=== PATIENT | male | born 1955 | race African-American/Black ===

== ENCOUNTER 2018-01-27 11:50 | Emergency (ER) | payer OTHER ==
[~2018-01-27] VITALS: Ht 180.3 cm; Wt 82.6 kg
[2018-01-27 12:22] VITALS: BP 125/63
[2018-01-27 13:56] LABS: Basophils # (auto) 0 uL; Basophils % (auto) 0.6 % (0.0-2.0); Eosinophils # (auto) 0 uL; Eosinophils % (auto) 1.5 % (0.0-7.0); Hematocrit 29.3 % (41.0-53.0); Hemoglobin 9.7 g/dL (13.5-17.5); Lymphocytes # (auto) 1.4 uL; Lymphocytes % (auto) 49.7 % (10.0-50.0); Mean Corpuscular Hemoglobin 31.6 pg (28.0-32.0); Mean Corpuscular Hgb Conc. 33.2 g/dL (32.0-36.0); Mean Corpuscular Volume 95.2 fL (80.0-100.0); Monocytes # (auto) 0.1 uL; Monocytes % (auto) 2.3 % (0.0-12.0); Neutrophils # (auto) 1.3 uL; Neutrophils % (auto) 45.9 % (37.0-80.0); Nucleated Red Blood Cells % 0.1 %; Platelet Count (auto) 293 10^3/uL (140-450); Red Blood Cells 3.08 10^6/uL (4.5-5.90); White Blood Cell 2.9 10^3/uL (4.4-10.8)
[2018-01-27 14:11] LABS: Red Cell Distribution Width 20.3 % (11.8-14.3)
[2018-01-27 14:16] LABS: Albumin 3.8 g/dL (3.4-5.0); BUN/Creatinine Ratio 13.1; Bilirubin, Total 0.2 mg/dL (0.2-1.0); Calcium 10.3 mg/dL (8.5-10.1); Potassium 3.5 mmol/L (3.5-5.1); Total Protein 7.1 g/dL (6.4-8.2)
[2018-01-27] MEDS ORDERED: HYDROcodone-ACET 10/325MG TAB PO ONE (15:30)
[2018-01-27] MEDS ORDERED: LEVOFLOXACIN 500 MG TAB PO ONE (15:30)
== END 2018-01-27 16:22 | disposition home or self-care (01) ==
LOC: ER 12:03
DX: J40 Bronchitis, not specified as acute or chronic (principal); F17.210 Nicotine dependence, cigarettes, uncomplicated; I10 Essential (primary) hypertension
CPT/HCPCS: 36415; 71046; 80053; 85025; 93005

== ENCOUNTER 2018-02-20 09:46 | Inpatient (IN) | payer OTHER, MEDICAID ==
[~2018-02-20] VITALS: Ht 180.3 cm; Wt 77.1 kg
[2018-02-20 10:55] LABS: Basophils # (auto) 0 uL; Eosinophils # (auto) 0 uL; Lymphocytes # (auto) 0.9 uL; Monocytes # (auto) 0.1 uL; Platelet Count (auto) 234 10^3/uL (140-450); White Blood Cell 2.6 10^3/uL (4.4-10.8)
[2018-02-20 10:57] LABS: Basophils % (auto) 0.6 % (0.0-2.0); Eosinophils % (auto) 0.4 % (0.0-7.0); Hematocrit 23.6 % (41.0-53.0); Lymphocytes % (auto) 34.8 % (10.0-50.0); Mean Corpuscular Hemoglobin 31.7 pg (28.0-32.0); Mean Corpuscular Hgb Conc. 33.9 g/dL (32.0-36.0); Mean Corpuscular Volume 93.6 fL (80.0-100.0); Monocytes % (auto) 2.2 % (0.0-12.0); Neutrophils # (auto) 1.6 uL; Nucleated Red Blood Cells % 0.4 %; Red Blood Cells 2.53 10^6/uL (4.5-5.90)
[2018-02-20 11:10] LABS: Alanine Aminotransferase 14 U/L (16-61); Albumin 3.4 g/dL (3.4-5.0); Alkaline Phosphatase 103 U/L (45-117); Anion Gap 7 (5-15); Aspartate Aminotransferase 8 U/L (15-37); BUN/Creatinine Ratio 16.7; Bilirubin, Total 0.3 mg/dL (0.2-1.0); Blood Urea Nitrogen 20 mg/dL (7-18); Calcium 9.7 mg/dL (8.5-10.1); Carbon Dioxide 26 mmol/L (21-32); Chloride 104 mmol/L (98-107); GFR African American 78 mL/min; GFR Non-African American 65 mL/min; Glucose 122 mg/dL (74-106); Magnesium 2.2 mg/dL (1.6-2.6); Potassium 3.6 mmol/L (3.5-5.1); Sodium 137 mmol/L (136-145); Total Protein 7.1 g/dL (6.4-8.2)
[2018-02-20] MEDS ORDERED: SODIUM CHLORIDE 0.9% 1,000 ML IV ONE (11:49)
[2018-02-20] MEDS ORDERED: IPRATROPIUM BROM 0.5 MG/2.5ML INH SOL NEB ONE (12:00)
[2018-02-20] MEDS ORDERED: methylPREDNISolone SOD SUCC 125 MG/2 ML VL IV ONE (12:00)
[2018-02-20] MEDS ORDERED: ALBUTEROL SULF 2.5 MG/0.5ML(0.5%) NEB SOLN NEB ONE (12:00)
[2018-02-20] MEDS ORDERED: IOHEXOL 350 MG/ML 100ML IJ ONE (13:46)
[2018-02-20] MEDS ORDERED: MORPHINE SULFATE 8mg/ml INJ SDV IV ONE (16:30)
[2018-02-20] MEDS ORDERED: ONDANSETRON HCL 4 MG/2 ML VIAL IV ONE (16:30)
[2018-02-20] MEDS ORDERED: MORPHINE SULF INJ 2 MG/ML SYRINGE 1ML ONE (16:41)
[2018-02-20] MEDS ORDERED: AZITHROMYCIN 500MG/ 250ML 250 ML IV ONE (16:45)
[2018-02-20] MEDS ORDERED: cefTRIAXone 1GM/10ml IVPUSH 10 ML IV ONE (16:45)
[2018-02-20] MEDS ORDERED: ONDANSETRON HCL 4 MG/2 ML VIAL IV PRN (17:00)
[2018-02-20] MEDS ORDERED: MORPHINE SULFATE 8mg/ml INJ SDV IV PRN (17:00)
[2018-02-20] MEDS ORDERED: TEMAZEPAM 15 MG CAP PO PRN (17:00)
[2018-02-20] MEDS ORDERED: DOCUSATE SOD 100 MG CAP PO PRN (17:00)
[2018-02-20] MEDS ORDERED: ACETAMINOPHEN 325 MG TAB PO PRN (17:00)
[2018-02-20] MEDS: IPRATROPIUM BROM 0.5 MG/2.5ML INH SOL NEB SCH (18:19)
[2018-02-20] MEDS: ACETYLCYSTEINE 10 %(100MG/ML) SOL 4ML NEB SCH ×2 (18:19→22:00)
[2018-02-20] MEDS: ALBUTEROL SULF 2.5 MG/0.5ML(0.5%) NEB SOLN NEB SCH (18:19)
[2018-02-20] MEDS: methylPREDNISolone SOD SUCC 40 MG/ML VL IV SCH ×2 (18:21→23:18)
[2018-02-20 19:40] VITALS: BP 118/61
[2018-02-20 19:49] LABS: Lactic Acid w/Reflex 2.1 mmol/L (0.4-2.0)
[2018-02-20] MEDS: HYDROcodone-ACET 10/325MG TAB PO PRN (20:28)
[2018-02-20 20:30] VITALS: BP 107/59
[2018-02-20] MEDS ORDERED: KETOROLAC TROMETH 30 MG/ML 1ML VIAL IV ONE (20:45)
[2018-02-20] MEDS: FAMOTIDINE 20 MG TAB PO SCH (21:32)
[2018-02-20] MEDS: SODIUM CHLOR 0.9% PF (SALINE LOCK) 10ML VIAL/SYR IV SCH (21:32)
[2018-02-20 21:59] LABS: Urine Bacteria NONE SEEN /hpf (None Seen); Urine Blood Negative /uL (Negative); Urine WBC <1 /hpf (0 - 3)
[2018-02-20 22:00] VITALS: BP 107/59
[2018-02-20] MEDS ORDERED: SERTRALINE HCL 50 MG TAB PO SCH (22:00)
[2018-02-20] MEDS ORDERED: LISI2.5T47 PO (23:31)
[2018-02-20] MEDS ORDERED: HYDR-4683 PO (23:31)
[2018-02-20] MEDS ORDERED: SERT25TA84 PO (23:31)
[2018-02-21] MEDS: ALBUTEROL SULF 2.5 MG/0.5ML(0.5%) NEB SOLN NEB SCH ×3 (00:39→12:09)
[2018-02-21] MEDS: IPRATROPIUM BROM 0.5 MG/2.5ML INH SOL NEB SCH ×3 (00:39→12:09)
[2018-02-21] MEDS: ACETYLCYSTEINE 10 %(100MG/ML) SOL 4ML NEB SCH ×2 (00:39→07:26)
[2018-02-21 05:00] VITALS: BP 122/73
[2018-02-21] MEDS: SODIUM CHLOR 0.9% PF (SALINE LOCK) 10ML VIAL/SYR IV SCH (06:05)
[2018-02-21] MEDS: HYDROcodone-ACET 10/325MG TAB PO PRN ×2 (06:06→10:03)
[2018-02-21] MEDS: methylPREDNISolone SOD SUCC 40 MG/ML VL IV SCH ×2 (06:06→11:44)
[2018-02-21 06:37] LABS: Basophils # (auto) 0 uL; Basophils % (auto) 0.3 % (0.0-2.0); Eosinophils # (auto) 0 uL; Eosinophils % (auto) 0.1 % (0.0-7.0); Hematocrit 21.8 % (41.0-53.0); Hemoglobin 7.6 g/dL (13.5-17.5); Lymphocytes # (auto) 0.6 uL; Mean Corpuscular Hemoglobin 32.3 pg (28.0-32.0); Mean Corpuscular Hgb Conc. 34.7 g/dL (32.0-36.0); Mean Corpuscular Volume 93.2 fL (80.0-100.0); Monocytes # (auto) 0.1 uL; Monocytes % (auto) 2.1 % (0.0-12.0); Neutrophils % (auto) 73.5 % (37.0-80.0); Nucleated Red Blood Cells % 0.5 %; Platelet Count (auto) 191 10^3/uL (140-450); Red Blood Cells 2.34 10^6/uL (4.5-5.90); Red Cell Distribution Width 19.6 % (11.8-14.3); White Blood Cell 2.7 10^3/uL (4.4-10.8)
[2018-02-21 06:58] LABS: Albumin 3.1 g/dL (3.4-5.0); Calcium 9.2 mg/dL (8.5-10.1); Potassium 4.2 mmol/L (3.5-5.1)
[2018-02-21 07:01] LABS: BUN/Creatinine Ratio 25.8
[2018-02-21 07:13] LABS: Urine Bacteria FEW /hpf (None Seen); Urine Blood Negative /uL (Negative); Urine Mucus FEW (None Seen); Urine Specific Gravity 1.047 (1.001-1.035); Urine WBC <1 /hpf (0 - 3)
[2018-02-21 07:15] LABS: Bilirubin, Total 0.1 mg/dL (0.2-1.0); Total Protein 6.8 g/dL (6.4-8.2)
[2018-02-21 08:53] VITALS: BP_SYST 120; BP_SYST 125; BP_DIAS 70; BP_DIAS 77
[2018-02-21 08:55] VITALS: BP 120/70
[2018-02-21] MEDS ORDERED: cefTRIAXone 1GM/10ml IVPUSH 10 ML IV SCH (09:00)
[2018-02-21 09:44] LABS: Folate (Folic Acid) 14.8 ng/mL (5.38-24)
[2018-02-21] MEDS ORDERED: MULTIPLE VITAMIN TAB PO SCH (10:00)
[2018-02-21] MEDS ORDERED: LISINOPRIL 10 MG TAB PO SCH (10:00)
[2018-02-21] MEDS ORDERED: AZITHROMYCIN 500MG/ 250ML 250 ML IV SCH (10:00)
[2018-02-21] MEDS: FAMOTIDINE 20 MG TAB PO SCH (10:02)
[2018-02-21] MEDS ORDERED: ACETYLCYSTEINE 10 %(100MG/ML) SOL 4ML NEB SCH (12:00)
[2018-02-24 11:25] LABS: Immunoglobulin G, Serum 395 mg/dL (700-1600)
== END 2018-02-21 13:40 | disposition home or self-care (01) | DRG 202 ==
LOC: ER 09:46 → EDBD 09:46 → OVERFLOW 09:47 → WEST WING 20:14
PROVIDERS: ADMIT Internal Medicine; ATTEND Family Medicine
DX: J45.901 Unspecified asthma with (acute) exacerbation (principal); C79.51 Secondary malignant neoplasm of bone; J98.11 Atelectasis; I11.9 Hypertensive heart disease without heart failure; D63.8 Anemia in other chronic diseases classified elsewhere; M89.9 Disorder of bone, unspecified; N18.2 Chronic kidney disease, stage 2 (mild); M84.48XD Pathological fracture, other site, subsequent encounter for fracture with routine healing; F17.210 Nicotine dependence, cigarettes, uncomplicated; Z82.49 Family history of ischemic heart disease and other diseases of the circulatory system; Z87.01 Personal history of pneumonia (recurrent)
CPT/HCPCS: 36415; 71045; 71275; 74176; 80053; 81001; 81002; 82105; 82232; 82378; 82607; 82746; 82784; 83540; 83550; 83605; 83615; 83735; 83880; 83883; 84154; 84443; 84484; 85025; 85379; 86301; 86334; 86335; 87040; 93005; 93970; 94640; 94761; 96374; 96375; J1885; J2405

== ENCOUNTER 2018-09-28 14:15 | Inpatient (IN) | payer OTHER, MEDICAID | END 2018-10-01 12:25 | disposition home or self-care (01) | LOC: ER 14:15 → TELE 19:01 → TELE-CENTR 22:05 | DX: A41.9 Sepsis, unspecified organism (principal); J18.1 Lobar pneumonia, unspecified organism; C90.00 Multiple myeloma not having achieved remission; E87.1 Hypo-osmolality and hyponatremia ==

== ENCOUNTER 2019-06-08 12:22 | Inpatient (IN) | payer BC, MEDICAID ==
[~2019-06-08] VITALS: Ht 182.9 cm; Wt 77.6 kg
[~2019-06-08 12:22] MED LIST: HYDR-4833 PO; LISI2.5T47 PO; SERT25TA84 PO
[2019-06-08] MEDS ORDERED: ACETAMINOPHEN 325 MG TAB PO ONE (13:00)
[2019-06-08] MEDS ORDERED: SODIUM CHLORIDE 0.9% 1,000 ML IV ONE ×2 (13:16)
[2019-06-08 13:59] LABS: Urine Bacteria NONE SEEN /hpf (None Seen); Urine Blood 2+ /uL (Negative); Urine Mucus FEW (None Seen); Urine Specific Gravity 1.029 (1.001-1.035); Urine WBC 2 /hpf (0 - 3)
[2019-06-08 14:21] LABS: Basophils # (auto) 0 uL; Eosinophils # (auto) 0 uL; Eosinophils % (auto) 0.3 % (0.0-7.0); Hemoglobin 9.5 g/dL (13.5-17.5); Lymphocytes # (auto) 0.5 uL; Monocytes # (auto) 0.1 uL; Neutrophils # (auto) 1.3 uL
[2019-06-08 14:25] LABS: Basophils % (auto) 1.1 % (0.0-2.0); Hematocrit 27.7 % (41.0-53.0); Lymphocytes % (auto) 26.8 % (10.0-50.0); Mean Corpuscular Hemoglobin 31.9 pg (28.0-32.0); Mean Corpuscular Hgb Conc. 34.4 g/dL (32.0-36.0); Mean Corpuscular Volume 92.6 fL (80.0-100.0); Monocytes % (auto) 3.9 % (0.0-12.0); Neutrophils % (auto) 67.9 % (37.0-80.0); Nucleated Red Blood Cells % 0.8 %; Platelet Count (auto) 233 10^3/uL (140-450); Red Blood Cells 2.99 10^6/uL (4.5-5.90); Red Cell Distribution Width 18.5 % (11.8-14.3)
[2019-06-08 14:26] LABS: Albumin 2.8 g/dL (3.4-5.0); Calcium 8.7 mg/dL (8.5-10.1)
[2019-06-08 14:30] LABS: BUN/Creatinine Ratio 13.1; Bilirubin, Total 2.8 mg/dL (0.2-1.0); Total Protein 6.9 g/dL (6.4-8.2)
[2019-06-08 14:41] LABS: Potassium 2.8 mmol/L (3.5-5.1)
[2019-06-08] MEDS ORDERED: ONDANSETRON HCL 4 MG/2 ML VIAL IV ONE (14:45)
[2019-06-08] MEDS ORDERED: POTASSIUM EFFERVESENT TAB 25 MEQ PO ONE (14:45)
[2019-06-08] MEDS ORDERED: cefTRIAXone 1GM/50ML D5W 50 ML IV ONE (15:00)
[2019-06-08] MEDS ORDERED: AZITHROMYCIN 500MG/ 250ML 250 ML IV ONE (15:00)
[2019-06-08] MEDS ORDERED: PROMETHAZINE HCL 25 MG/ML 1ML IV PRN (16:00)
[2019-06-08] MEDS ORDERED: ALBUTEROL SULF 2.5 MG/0.5ML(0.5%) NEB SOLN NEB PRN (16:00)
[2019-06-08] MEDS ORDERED: TEMAZEPAM 15 MG CAP PO PRN (16:00)
[2019-06-08] MEDS ORDERED: VANCOMYCIN PER PHARMACY 0 MG IV SCH (16:00)
[2019-06-08] MEDS ORDERED: LACTULOSE 20Gm/30ML SOLN PO PRN (16:00)
[2019-06-08] MEDS ORDERED: NITROGLYCERIN 0.4 MG SL TAB SL PRN (16:00)
[2019-06-08] MEDS ORDERED: MORPHINE SULF INJ 2 MG/ML SYRINGE 1ML IV PRN (16:00)
[2019-06-08] MEDS ORDERED: PIPERACILLIN-TAZOB 3.375GM 100 ML IV ONE (16:00)
[2019-06-08] MEDS: SODIUM CHLORIDE 0.9% 1,000 ML IV SCH ×2 (16:42→23:51)
[2019-06-08 17:13] VITALS: BP 122/57
[2019-06-08] MEDS ORDERED: VANCOMYCIN 1GM/250ML 250 ML IV ONE (17:30)
--- NOTE | 2019-06-08 17:52 | NUR ---
Telemetry admit from ER AURELIA DE SOUZA admitted to Telemetry unit after SBAR received. Patient oriented to Irma Bartholomew, RN primary RN, unit, room, bed, and unit policies regarding patient care and visiting hours. Patient now on continuous telemetry monitoring, tele box # 34 and telemetry reading on arrival to unit is [facility]. Patient placed on bedside oxygen, weighed by bedscale and encouraged to call if they need something. All questions and concerns addressed, patient verbalized understanding. Note:
[2019-06-08 18:01] VITALS: BP 128/64
[2019-06-08] MEDS: ALBUTEROL SULF 2.5 MG/0.5ML(0.5%) NEB SOLN NEB SCH ×2 (18:18→23:34)
[2019-06-08] MEDS: IPRATROPIUM BROM 0.5 MG/2.5ML INH SOL NEB SCH ×2 (18:18→23:34)
[2019-06-08] MEDS: traMADol HCL 50 MG TAB PO PRN (18:24)
[2019-06-08 18:41] VITALS: BP 128/64
--- NOTE | 2019-06-08 19:35 | NUR ---
RECEIVED PATIENT, AWAKE, ALERT, ORIENTED X4, AMBULATORY. NO S/S OF DISTRESS, C/O GENERALIZED BODY PAIN. ORIENTED ON PLAN OF CARE. BED IS LOCKED AND IN LOWEST POSITION, SIDE RAILS UP X2, CALL LIGHT WITHIN REACH. WILL CONTINUE TO MONITOR.
[2019-06-08] MEDS: ACETAMINOPHEN 500 MG TAB PO PRN (21:20)
[2019-06-08 21:52] VITALS: BP 107/49
[2019-06-08] MEDS: PIPERACILLIN-TAZOB 3.375GM 100 ML IV SCH (23:42)
[2019-06-09] MEDS: ACETAMINOPHEN 500 MG TAB PO PRN ×2 (05:00→17:15)
[2019-06-09] MEDS: VANCOMYCIN 1GM/250ML 250 ML IV SCH ×2 (05:39→17:35)
[2019-06-09 05:59] VITALS: BP 103/63
[2019-06-09] MEDS: PIPERACILLIN-TAZOB 3.375GM 100 ML IV SCH ×3 (06:39→18:30)
[2019-06-09 07:21] LABS: Basophils # (auto) 0 uL; Eosinophils # (auto) 0 uL; Lymphocytes # (auto) 0.4 uL; Mean Corpuscular Volume 92.3 fL (80.0-100.0); Neutrophils # (auto) 1.1 uL; Red Blood Cells 2.53 10^6/uL (4.5-5.90); Red Cell Distribution Width 18.6 % (11.8-14.3)
[2019-06-09 07:24] LABS: Basophils % (auto) 0.9 % (0.0-2.0); Eosinophils % (auto) 0.8 % (0.0-7.0); Hematocrit 23.3 % (41.0-53.0); Lymphocytes % (auto) 25.4 % (10.0-50.0); Mean Corpuscular Hemoglobin 31.8 pg (28.0-32.0); Mean Corpuscular Hgb Conc. 34.5 g/dL (32.0-36.0); Monocytes # (auto) 0 uL; Monocytes % (auto) 2.8 % (0.0-12.0); Neutrophils % (auto) 70.1 % (37.0-80.0); Nucleated Red Blood Cells % 0.1 %; Platelet Count (auto) 188 10^3/uL (140-450)
--- NOTE | 2019-06-09 07:30 | NUR ---
Opening Shift Note Assuming care of patient at this time. Patient is resting with his eyes closed. Patient shows no signs or symptoms of pain. Patient shows no signs or symptoms of distress or shortness of breath. Breaths are even and unlabored. Bed is locked and lowered with side rails up x2. Will instruct patient on the plan of care for today and to call for assistance as needed once patient is more awake and alert. Call light within reach. Will continue to round hourly and as needed.
[2019-06-09 07:34] LABS: White Blood Cell 1.6 10^3/uL (4.4-10.8)
--- NOTE | 2019-06-09 07:34 | NUR ---
CARE ENDORSED TO AM SHIFT RN
--- NOTE | 2019-06-09 07:35 | NUR ---
Critical Lab Notified from DAISY Cobb that a critical lab value was received. Patient's WBC is currently 1.6. Will notify on-call hospitalist.
--- NOTE | 2019-06-09 07:36 | NUR ---
Page to On-call Hospitalist Page to on-call hospitalist to notify of patient's critical lab value.
[2019-06-09 07:46] LABS: Calcium 8.2 mg/dL (8.5-10.1)
[2019-06-09 07:49] LABS: BUN/Creatinine Ratio 10.3
[2019-06-09] MEDS: SODIUM CHLORIDE 0.9% 1,000 ML IV SCH ×3 (07:51→20:45)
--- NOTE | 2019-06-09 07:51 | NUR ---
Call from On-Call Call from [facility] at this time. Aware of patient's new critical lab. New orders given.
[2019-06-09 07:53] LABS: Potassium 2.8 mmol/L (3.5-5.1)
[2019-06-09 08:00] VITALS: BP 108/59
[2019-06-09] MEDS ORDERED: FILGRASTIM (TBO) 300 MCG/0.5 ML SYRG SC ONE (08:00)
[2019-06-09] MEDS: IPRATROPIUM BROM 0.5 MG/2.5ML INH SOL NEB SCH ×4 (08:41→23:52)
[2019-06-09] MEDS: ALBUTEROL SULF 2.5 MG/0.5ML(0.5%) NEB SOLN NEB SCH ×4 (08:41→23:52)
[2019-06-09] MEDS ORDERED: POTASSIUM CHL 20 Meq TABLET PO ONE (08:45)
[2019-06-09] MEDS: PANTOPRAZOLE 40 MG TAB PO SCH (09:38)
[2019-06-09] MEDS: traMADol HCL 50 MG TAB PO PRN ×2 (09:42→22:57)
[2019-06-09] MEDS ORDERED: AZITHROMYCIN 500MG/ 250ML 250 ML IV SCH (10:00)
[2019-06-09] MEDS ORDERED: ENOXAPARIN SOD 40 MG/0.4 ML SYRINGE SC SCH (10:00)
[2019-06-09] MEDS ORDERED: NICOTINE 21MG/24 HR TOPICAL PATCH TD ONE (10:45)
[2019-06-09] MEDS: HYDROcodone-ACET 5/325MG TAB PO PRN ×2 (11:56→19:41)
[2019-06-09] MEDS: SERTRALINE HCL 50 MG TAB PO SCH (12:01)
[2019-06-09 13:00] VITALS: BP 118/56
[2019-06-09 17:00] VITALS: BP 113/64
--- NOTE | 2019-06-09 19:30 | NUR ---
Opening Shift Note Assumed care of patient, awake and alert.Complaining of pain "all over" 06/29. Will medicate with norco per orders. No S/S of distress/SOB. Sitting up in bed. Slightly irritable and short. Refusing IV fluids. Instructed on POC and to call for assist PRN, will continue to monitor for changes Q1hr and PRN.Call light within reach.
--- NOTE | 2019-06-09 19:34 | NUR ---
Closing Shift Note Patient resting in bed with eyes closed. Patient shows no signs or symptoms of distress or shortness of breath. Report given. Will endorse care to the overnight babysitter RN.
[2019-06-09 21:41] VITALS: BP 103/67
--- NOTE | 2019-06-09 23:53 | NUR ---
Respiratory note: PT REFUSING SCHEDULED MED NEB TX AT THIS TIME. PT STATING HE WANTS TO SLEEP. NO SIGNS OF ANY RESPIRATORY DISTRESS NOTED.
--- NOTE | 2019-06-10 | NUR ---
Paged hospitalist. Patient states " I take norco at home , this isnt working." Complaining of pain 06/29 all over. Awaiting return call
[2019-06-10] MEDS: PIPERACILLIN-TAZOB 3.375GM 100 ML IV SCH ×4 (00:12→18:04)
[2019-06-10] MEDS: HYDROcodone-ACET 5/325MG TAB PO PRN ×3 (00:15→11:31)
--- NOTE | 2019-06-10 00:40 | NUR ---
Paged hospitalist for second time. Continuing to wait for return call
--- NOTE | 2019-06-10 00:57 | NUR ---
Antwan called. Ordered extra dose of norco x1. Orders carried out.
[2019-06-10] MEDS ORDERED: HYDROcodone-ACET 7.5/325MG TAB PO ONE (01:00)
[2019-06-10 05:12] VITALS: BP 112/68
[2019-06-10 05:44] LABS: Basophils # (auto) 0 uL; Basophils % (auto) 0.3 % (0.0-2.0); Eosinophils # (auto) 0 uL; Eosinophils % (auto) 0.8 % (0.0-7.0); Hematocrit 26.9 % (41.0-53.0); Hemoglobin 9.3 g/dL (13.5-17.5); Lymphocytes # (auto) 0.5 uL; Lymphocytes % (auto) 14.7 % (10.0-50.0); Mean Corpuscular Hemoglobin 32.2 pg (28.0-32.0); Mean Corpuscular Hgb Conc. 34.5 g/dL (32.0-36.0); Mean Corpuscular Volume 93.3 fL (80.0-100.0); Monocytes # (auto) 0 uL; Neutrophils # (auto) 2.7 uL; Neutrophils % (auto) 83.2 % (37.0-80.0); Nucleated Red Blood Cells % 0.3 %; Platelet Count (auto) 213 10^3/uL (140-450); Red Blood Cells 2.89 10^6/uL (4.5-5.90); Red Cell Distribution Width 18.6 % (11.8-14.3); White Blood Cell 3.3 10^3/uL (4.4-10.8)
[2019-06-10 06:02] LABS: Albumin 2.2 g/dL (3.4-5.0); Calcium 8.5 mg/dL (8.5-10.1); Potassium 3.5 mmol/L (3.5-5.1)
[2019-06-10 06:05] LABS: Bilirubin, Total 1.8 mg/dL (0.2-1.0); Total Protein 6.4 g/dL (6.4-8.2)
[2019-06-10] MEDS: VANCOMYCIN 1GM/250ML 250 ML IV SCH ×3 (06:06→23:56)
[2019-06-10] MEDS ORDERED: HYDR-4072 PO (06:49)
[2019-06-10] MEDS: SODIUM CHLORIDE 0.9% 1,000 ML IV SCH ×2 (06:50→18:04)
--- NOTE | 2019-06-10 06:50 | NUR ---
Slept on and off throughout night. Changed norco in home meds list to per pt. Asked to bring bottle in to verify accurate dose. No Respiratory distress noted. Using urinal through out night. I emptied 450 clear yellow urine. Neutropenic precautions maintained. Educated on hand hygiene and him being high risk for infection. Verbalized understanding Call light within reach. Productive cough, yellow/green phlegm noted.
--- NOTE | 2019-06-10 07:01 | NUR ---
Called pharmacy to ask to adjust times for antibiotics due to both scheduled @ 0600. He advised to give Vanco first if that is to happen in the future.
[2019-06-10] MEDS: IPRATROPIUM BROM 0.5 MG/2.5ML INH SOL NEB SCH ×3 (07:31→18:00)
[2019-06-10] MEDS: ALBUTEROL SULF 2.5 MG/0.5ML(0.5%) NEB SOLN NEB SCH ×3 (07:32→18:00)
--- NOTE | 2019-06-10 08:05 | NUR ---
OPENING SHIFT NOTE ASSUMED CARE OF PATIENT. PATIENT IS AWAKE AND ALERT. NO SOB OR SIGNS OF DISTRESS NOTED. INSTRUCTED ON POC AND TO CALL FOR ASSISTANCE PRN. BED IN LOWEST POSITION WITH SIDE RAILS UP X2. WILL CONTINUE TO MONITOR.
[2019-06-10 09:00] VITALS: BP 111/62
[2019-06-10] MEDS: NICOTINE 21MG/24 HR TOPICAL PATCH TD SCH (10:00)
[2019-06-10] MEDS: FILGRASTIM(TBO) 480 MCG/0.8 ML SYRG SC SCH (10:04)
[2019-06-10] MEDS: SERTRALINE HCL 50 MG TAB PO SCH (10:04)
[2019-06-10] MEDS: PANTOPRAZOLE 40 MG TAB PO SCH (10:04)
[2019-06-10] MEDS ORDERED: VANCOMYCIN 1GM/250ML 250 ML IV SCH (10:30)
--- NOTE | 2019-06-10 12:19 | NUR ---
Respiratory note: RT at bedside for scheduled medneb tx. Pt wants to eat lunch first, requesting to take breathing tx after lunch. Pt with no s/s of respiratory distress at this time. Will return at a later time.
[2019-06-10 13:00] VITALS: BP 104/63
[2019-06-10 16:54] VITALS: BP 116/60
[2019-06-10] MEDS: HYDROcodone-ACET 10/325MG TAB PO PRN ×2 (18:04→22:49)
[2019-06-10] MEDS: Ensure HIGH Protein Chocolate 8oz Bottle PO SCH (18:05)
--- NOTE | 2019-06-10 19:08 | NUR ---
PT REFUSED MED NEB AT THIS TIME. DENIES SOB. WILL CHECK BACK AT NEXT SCHEDULED TX
--- NOTE | 2019-06-10 19:25 | NUR ---
Opening Shift Note Report received from day shift RN. Assumed care of patient. Patient sitting in bed awake and alert x4. No S/S of distress/SOB noted. Patient complains of body pain 7/10 on a numerical scale. Will medicate patient as ordered. Bed locked and left in the lowest position. Call left within reach. Instructed on POC and to call for assist PRN, will continue to monitor for changes Q1hr and PRN.
[2019-06-10 22:00] VITALS: BP 126/69
[2019-06-11] MEDS: IPRATROPIUM BROM 0.5 MG/2.5ML INH SOL NEB SCH ×5 (00:01→23:59)
[2019-06-11] MEDS: ALBUTEROL SULF 2.5 MG/0.5ML(0.5%) NEB SOLN NEB SCH ×4 (00:01→23:59)
[2019-06-11] MEDS: PIPERACILLIN-TAZOB 3.375GM 100 ML IV SCH ×4 (01:02→18:46)
[2019-06-11] MEDS: SODIUM CHLORIDE 0.9% 1,000 ML IV SCH ×3 (02:45→22:44)
[2019-06-11] MEDS: HYDROcodone-ACET 10/325MG TAB PO PRN ×5 (04:40→22:54)
[2019-06-11 05:00] VITALS: BP 133/68
[2019-06-11 05:07] LABS: Basophils # (auto) 0 uL; Basophils % (auto) 0.4 % (0.0-2.0); Eosinophils # (auto) 0.1 uL; Eosinophils % (auto) 1.3 % (0.0-7.0); Hematocrit 26.3 % (41.0-53.0); Hemoglobin 9.1 g/dL (13.5-17.5); Lymphocytes # (auto) 0.6 uL; Lymphocytes % (auto) 14.7 % (10.0-50.0); Mean Corpuscular Hemoglobin 31.9 pg (28.0-32.0); Mean Corpuscular Hgb Conc. 34.4 g/dL (32.0-36.0); Mean Corpuscular Volume 92.6 fL (80.0-100.0); Monocytes # (auto) 0.2 uL; Monocytes % (auto) 3.8 % (0.0-12.0); Neutrophils # (auto) 3.4 uL; Neutrophils % (auto) 79.8 % (37.0-80.0); Nucleated Red Blood Cells % 0.1 %; Platelet Count (auto) 228 10^3/uL (140-450); Red Blood Cells 2.84 10^6/uL (4.5-5.90); Red Cell Distribution Width 19.1 % (11.8-14.3); White Blood Cell 4.3 10^3/uL (4.4-10.8)
[2019-06-11 05:20] LABS: Albumin 2.2 g/dL (3.4-5.0); BUN/Creatinine Ratio 10.2; Calcium 8.7 mg/dL (8.5-10.1); Magnesium 2.2 mg/dL (1.6-2.6); Potassium 3.3 mmol/L (3.5-5.1)
[2019-06-11 05:35] LABS: Bilirubin, Total 1.3 mg/dL (0.2-1.0); Total Protein 6.2 g/dL (6.4-8.2)
[2019-06-11 09:00] VITALS: BP 107/50
[2019-06-11] MEDS: NICOTINE 21MG/24 HR TOPICAL PATCH TD SCH (10:00)
[2019-06-11] MEDS: SERTRALINE HCL 50 MG TAB PO SCH (10:01)
[2019-06-11] MEDS: PANTOPRAZOLE 40 MG TAB PO SCH (10:01)
[2019-06-11] MEDS: FILGRASTIM(TBO) 480 MCG/0.8 ML SYRG SC SCH (10:02)
[2019-06-11] MEDS: VANCOMYCIN 1,250 MG in D5W 5% 250 ML IV SCH ×2 (10:03→22:22)
[2019-06-11] MEDS: Ensure HIGH Protein Chocolate 8oz Bottle PO SCH ×3 (10:03→18:51)
--- NOTE | 2019-06-11 11:31 | NUR ---
RT NOTE: WENT TO PTS ROOM AT THIS TIME PT WAS NOT IN THE ROOM. WILL COME BACK AT A LATER TIME TO SEE IF PT WOULD LIKE TX. WILL CONTINUE TO MONITOR PT.
[2019-06-11 13:00] VITALS: BP 123/59
[2019-06-11] MEDS ORDERED: POTASSIUM EFFERVESENT TAB 25 MEQ PO ONE (15:30)
[2019-06-11] MEDS ORDERED: FLUCONAZOLE 100 MG TAB PO ONE (15:30)
[2019-06-11 16:58] VITALS: BP 139/82
--- NOTE | 2019-06-11 19:20 | NUR ---
Opening Shift Note Report received from day shift RN. Assumed care of patient. Patient sitting in bed awake and alert x4. No S/S of distress/SOB noted and denies pain at this time. Bed locked and left in the lowest position. Call left within reach. Instructed on POC and to call for assist PRN, will continue to monitor for changes Q1hr and ID
[2019-06-11 19:44] VITALS: BP 139/82
[2019-06-11 22:00] VITALS: BP 131/67
--- NOTE | 2019-06-11 23:59 | NUR ---
Respiratory note: SCHEDULED MED NEB TX NOT GIVEN. PT WAS ASLEEP AND DID NOT WANT OR NEED TX AT THIS TIME. NO RESP DISTRESS NOTED. PT KNOWS TO HAVE RT PAGED IF TX IS NEEDED BEFORE NEXT SCHEDULED TX IS DUE.
[2019-06-12] MEDS: PIPERACILLIN-TAZOB 3.375GM 100 ML IV SCH ×2 (01:07→05:51)
[2019-06-12] MEDS: HYDROcodone-ACET 10/325MG TAB PO PRN ×4 (04:23→21:43)
[2019-06-12 05:03] LABS: Basophils # (auto) 0.1 uL; Basophils % (auto) 1.3 % (0.0-2.0); Eosinophils # (auto) 0 uL; Eosinophils % (auto) 1.1 % (0.0-7.0); Hematocrit 25.4 % (41.0-53.0); Hemoglobin 8.8 g/dL (13.5-17.5); Lymphocytes % (auto) 21.8 % (10.0-50.0); Mean Corpuscular Hemoglobin 32.2 pg (28.0-32.0); Mean Corpuscular Hgb Conc. 34.8 g/dL (32.0-36.0); Mean Corpuscular Volume 92.5 fL (80.0-100.0); Monocytes # (auto) 0 uL; Neutrophils # (auto) 3.4 uL; Neutrophils % (auto) 74.8 % (37.0-80.0); Nucleated Red Blood Cells % 0.1 %; Platelet Count (auto) 222 10^3/uL (140-450); Red Blood Cells 2.74 10^6/uL (4.5-5.90); Red Cell Distribution Width 19.1 % (11.8-14.3); White Blood Cell 4.6 10^3/uL (4.4-10.8)
[2019-06-12 05:29] LABS: Potassium 3.8 mmol/L (3.5-5.1)
[2019-06-12 05:36] LABS: Albumin 2.2 g/dL (3.4-5.0); BUN/Creatinine Ratio 11.5; Bilirubin, Total 1.1 mg/dL (0.2-1.0); Calcium 8.6 mg/dL (8.5-10.1); Total Protein 6.2 g/dL (6.4-8.2)
[2019-06-12 06:00] VITALS: BP 135/73
[2019-06-12] MEDS: ALBUTEROL SULF 2.5 MG/0.5ML(0.5%) NEB SOLN NEB SCH ×3 (06:48→19:30)
[2019-06-12] MEDS: IPRATROPIUM BROM 0.5 MG/2.5ML INH SOL NEB SCH ×3 (06:48→19:29)
--- NOTE | 2019-06-12 06:50 | NUR ---
Respiratory note: PATIENT REFUSED 0600 MED-NEB TX. HE WAS IN NO ACUTE RESPIRATORY DISTRESS AT TIME OF REFUSAL AND WAS INSTRUCTED THAT HIS NEXT TX WOULD NOT BE UNTIL 1200; HE WAS IN AGREEMENT WITH THIS.
--- NOTE | 2019-06-12 07:29 | NUR ---
RECEIVED SITTING ON EDGE OF BED, PAIN LEVEL 8/10 BUT WOULD LIKE TO TAKE PAIN MED AFTER BREAKFAST. PATIENT EDUCATED ON IMPORTANCE OF IV ANTIBIOTIC BEING GIVEN IN TIMELY MANNER SO INSTRUCTED TO INFORM THIS POWER TOOL REPAIRER WHEN GETTING OFF UNIT AND WHEN BACK FROM SMOKING. PATIENT AWARE HOW UNHEALTHY SMOKING IS BUT REFUSE TO STOP SMOKING. PER REPORT HAS BEEN REFUSING NICOTINE PATCH.
[2019-06-12] MEDS: PANTOPRAZOLE 40 MG TAB PO SCH (09:23)
[2019-06-12] MEDS: SERTRALINE HCL 50 MG TAB PO SCH (09:23)
[2019-06-12] MEDS: FLUCONAZOLE 100 MG TAB PO SCH (09:24)
[2019-06-12 09:38] VITALS: BP 122/80
[2019-06-12] MEDS: NICOTINE 21MG/24 HR TOPICAL PATCH TD SCH (10:00)
[2019-06-12] MEDS: FILGRASTIM(TBO) 480 MCG/0.8 ML SYRG SC SCH (10:15)
[2019-06-12] MEDS: SODIUM CHLORIDE 0.9% 1,000 ML IV SCH (10:16)
[2019-06-12] MEDS: Ensure HIGH Protein Chocolate 8oz Bottle PO SCH ×3 (10:16→18:00)
[2019-06-12] MEDS ORDERED: POTASSIUM CHL 20 Meq TABLET PO ONE (10:30)
[2019-06-12] MEDS ORDERED: FUROSEMIDE 20 MG/2 ML VIAL IV ONE (10:30)
[2019-06-12] MEDS: LEVOFLOXACIN 250 MG TAB PO SCH (12:15)
[2019-06-12 13:00] VITALS: BP 121/69
--- NOTE | 2019-06-12 14:25 | NUR ---
Nutrition Assessment Notes please see attached link for complete assessment Est. Needs BW [id number] kcal (25-30 kcal/kgBW), 77-100 gms pro (1.0-1.3 gms/kgBW r/t severe hypoalb). Will continue to monitor pertinent labs and reassess nutrient need prn Addendum: 06/12/19 at [address] Amended: Links added.
--- NOTE | 2019-06-12 16:26 | NUR ---
OFF UNIT UNIT TO SMOKE MULTIPLE TIMES.
[2019-06-12 16:53] VITALS: BP 120/70
--- NOTE | 2019-06-12 19:00 | NUR ---
Opening Shift Note Assumed care of patient, awake and alert. No S/S of distress/SOB or pain. Instructed on POC and to call for assist PRN, will continue to monitor for changes Q1hr and PRN.
[2019-06-12 21:00] VITALS: BP 133/73
--- NOTE | 2019-06-12 21:40 | NUR ---
Respiratory note: PT REFUSED SCHEDULED MED NEB TX AT THIS TIME STATING HE WANTED TO SLEEP. NO SIGNS OF ANY RESPIRATORY DISTRESS NOTED. ADVISED TO TO CALL IF TX IS NEEDED. RT NAME AND PAGER NUMBER WRITTEN ON PT'S BOARD.
--- NOTE | 2019-06-13 | NUR ---
Respiratory note: PT REFUSED MED NEB TX AT THIS TIME. PT STATED HE WANTED TO SLEEP. NO SIGNS OF ANY RESPIRATORY DISTRESS NOTED. ADVISED PT TO CALL IF TX IS NEEDED.
[2019-06-13 04:30] VITALS: BP 133/72
[2019-06-13] MEDS: HYDROcodone-ACET 10/325MG TAB PO PRN ×2 (05:13→09:23)
[2019-06-13 06:05] LABS: % Iron Saturation 35.6 % (20-55)
[2019-06-13] MEDS: ALBUTEROL SULF 2.5 MG/0.5ML(0.5%) NEB SOLN NEB SCH ×3 (06:34→11:27)
[2019-06-13] MEDS: IPRATROPIUM BROM 0.5 MG/2.5ML INH SOL NEB SCH ×3 (06:34→11:27)
--- NOTE | 2019-06-13 06:34 | NUR ---
Respiratory note: PT REFUSED HIS 0600 MED NEB TX. PT STATES THAT HE WANTS TO SLEEP. NO SOB NOTED. PT APPEARS TO BE BREATHING COMFORTABLY ON RA WITH A POX OF 96%, HR 84, RR 15.
[2019-06-13 07:37] LABS: Ferritin 1351.5 ng/mL (10-322)
[2019-06-13 07:38] LABS: Folate (Folic Acid) 11.85 ng/mL (5.38-24)
[2019-06-13 09:13] VITALS: BP 132/70
[2019-06-13] MEDS: SERTRALINE HCL 50 MG TAB PO SCH (09:16)
[2019-06-13] MEDS: FLUCONAZOLE 100 MG TAB PO SCH (09:17)
[2019-06-13] MEDS: NICOTINE 21MG/24 HR TOPICAL PATCH TD SCH (09:25)
[2019-06-13] MEDS: Ensure HIGH Protein Chocolate 8oz Bottle PO SCH (09:25)
[2019-06-13] MEDS: PANTOPRAZOLE 40 MG TAB PO SCH (09:27)
[2019-06-13] MEDS: LEVOFLOXACIN 250 MG TAB PO SCH (12:00)
[2019-06-13 13:29] VITALS: BP 130/64
[2019-06-13] MEDS ORDERED: Pro-Stat SF 30ml Vanilla PO SCH (18:00)
== END 2019-06-13 14:00 | disposition home or self-care (01) | DRG 871 ==
LOC: ER 12:22 → TELE 12:23 → TELE-CENTR 17:52 → CENTRAL 06-09 11:06
PROVIDERS: ADMIT Internal Medicine; ATTEND Internal Medicine
DX: A41.02 Sepsis due to Methicillin resistant Staphylococcus aureus (principal); E43 Unspecified severe protein-calorie malnutrition; J18.1 Lobar pneumonia, unspecified organism; C90.00 Multiple myeloma not having achieved remission; E87.1 Hypo-osmolality and hyponatremia; D64.9 Anemia, unspecified; D70.9 Neutropenia, unspecified; E78.5 Hyperlipidemia, unspecified; E86.0 Dehydration; E87.6 Hypokalemia; F17.210 Nicotine dependence, cigarettes, uncomplicated; G89.4 Chronic pain syndrome; N18.2 Chronic kidney disease, stage 2 (mild); I12.9 Hypertensive chronic kidney disease with stage 1 through stage 4 chronic kidney disease, or unspecified chronic kidney disease; Z86.711 Personal history of pulmonary embolism; Z92.21 Personal history of antineoplastic chemotherapy; Z79.899 Other long term (current) drug therapy; Z68.23 Body mass index [BMI] 23.0-23.9, adult
CPT/HCPCS: 36415; 71045; 71046; 80048; 80053; 80202; 81001; 82607; 82728; 82746; 83010; 83540; 83550; 83605; 83615; 83735; 84443; 85025; 87040; 87070; 87186; 87205; 94640; G0378; J0696; J1447; J2405; J2543; J7060

== ENCOUNTER 2019-08-30 08:54 | Emergency (ER) | payer BC, MEDICAID ==
[~2019-08-30] VITALS: Ht 180.3 cm; Wt 82.6 kg
[~2019-08-30 08:54] MED LIST changes: +HYDR-4072 PO; -HYDR-4833 PO
[2019-08-30 09:00] VITALS: BP 129/68
[2019-08-30] MEDS ORDERED: IPRATROPIUM BROM 0.5 MG/2.5ML INH SOL NEB ONE (10:15)
[2019-08-30] MEDS ORDERED: ALBUTEROL SULF 2.5 MG/0.5ML(0.5%) NEB SOLN NEB ONE (10:15)
[2019-08-30] MEDS ORDERED: IBUPROFEN 800 MG TAB PO ONE (10:15)
== END 2019-08-30 10:39 | disposition home or self-care (01) ==
LOC: ER 08:58
DX: R07.9 Chest pain, unspecified (principal); R05 Cough; R06.02 Shortness of breath; E78.5 Hyperlipidemia, unspecified; I10 Essential (primary) hypertension; F17.210 Nicotine dependence, cigarettes, uncomplicated
CPT/HCPCS: 71046; 94640; 99283; J7611; J7644